=== PATIENT | male | born 1945 | race Caucasian/White ===

== ENCOUNTER 2016-12-24 10:12 | Observation (INO) | payer OTHER, MEDICARE ==
[2016-12-23 14:22] VITALS: BMI 30.1
[~2016-12-24] VITALS: Ht 165.1 cm; Wt 84.0 kg
[2016-12-24] VITALS (21 sets, daily range): BP systolic 103–151; BP diastolic 44–81; PULSE 75–99; RESP 12–24; Ht 165.1 cm; Wt 84.0 kg
--- NOTE | 2016-12-24 07:41 | HPN ---
Date/Time of Note Date/Time of Note DATE: 12/24/16 TIME: 07:41 Interval H&P Admission Note Pt. seen H&P reviewed: No system changes DES ROMERO MD Dec 24, 2016 07:41
[~2016-12-24 10:12] MED LIST: CAND32TA2 PO; EPHEDrine SULFATE 50 MG/5 ML SYG ONE; HYDR-3498 PO; LEVO500T72 PO; PROPOFOL 200 MG INJ ONE; TAMS-14 PO
[2016-12-24] MEDS ORDERED: PROPOFOL 20 ML ONE (11:12)
[2016-12-24] MEDS ORDERED: LIDOCAINE 2% (SDV) 5 ML INJ ONE (11:12)
[2016-12-24] MEDS ORDERED: CEFTRIAXONE 1 GM/50 ML (PMX) 50 ML IVPB ONE (12:00)
[2016-12-24] MEDS ORDERED: FENTAnyl 50 MCG/ML VIAL ONE ×2 (12:06→13:21)
[2016-12-24] MEDS ORDERED: MIDAZOLAM 1 MG/ML 2 ML INJ ONE (12:07)
[2016-12-24] MEDS ORDERED: ACETAMINOPHEN 1000MG/100ML IV 100 ML ONE (12:07)
[2016-12-24] MEDS ORDERED: DEXAMETHASONE 4 MG/ML 1 ML INJ ONE (12:08)
[2016-12-24] MEDS ORDERED: ONDANSETRON 4 MG INJ ONE (12:08)
[2016-12-24] MEDS ORDERED: FAMOTIDINE 20 MG INJ ONE (12:08)
[2016-12-24] MEDS ORDERED: AMLO5TAB4 PO (12:28)
[2016-12-24] MEDS ORDERED: METO50TA16 PO (12:28)
[2016-12-24] MEDS ORDERED: HYDROmorphONE (0.2 MG/ML) 10ML SYG IV ONE (14:25)
[2016-12-24] MEDS: METOPROLOL (XL) 50 MG TAB PO SCH (14:30)
[2016-12-24] MEDS ORDERED: ONDANSETRON 4 MG INJ IV PRN (14:30)
[2016-12-24] MEDS: AMLODIPINE 5 MG TAB PO SCH (14:30)
[2016-12-24] MEDS ORDERED: LABETALOL HCL 20MG INJ IV PRN (14:30)
[2016-12-24] MEDS ORDERED: OXYCODONE/ACETAMINOPHEN (5/325) TAB PO PRN ×2 (14:30)
[2016-12-24] MEDS ORDERED: HYDROmorphONE (0.2 MG/ML) 10ML SYG IV PRN ×3 (14:30)
--- NOTE | 2016-12-24 14:41 | OPR ---
DATE OF OPERATION: 12/24/2016 PREOPERATIVE DIAGNOSIS: Benign prostatic hypertrophy with obstruction. POSTOPERATIVE DIAGNOSIS: Benign prostatic hypertrophy with obstruction. PROCEDURE PERFORMED: Transurethral resection of the prostate. SURGEON: Rojas Lancaster MD TECHNIQUE: The patient was brought to the operating room. General anesthesia was induced. The pat ient was positioned in the lithotomy position. The patient was given 1 gram of ceftriaxone IV at t he start of the procedure. Timeout was done. The patient was identified by his name, date, a nd the procedure. The genital area was then prepped and draped in the usual sterile manner. The ur ethra was dilated with the Tamica dilators up to #30 Norwegian. Then, #26 Norwegian bipolar resectosco pe sheath was introduced under direct vision through the penile urethra all the way to the bladder. Once in the bladder, the bladder was inspected and there was no evidence of bladder tumor. The pro state was obstructing mostly from the left lateral lobe and also anterior lobe, and also there was s ome growth on the right lobe as well. The ureteral orifices were both identified. Then, the resect ion was done first on the left lateral lobe and the median lobe, and then the anterior lobe, and fin ally the right lobe. All the apical tissues were resected. All the bleeders were electrocoagulated . Good hemostasis was obtained. Then, at the end, all the prostatic chips were evacuated. The scope was then removed and then the #24 Norwegian York catheter, 3-way, was inserted and connected to a drainage bag. The balloon of the catheter inflated with 60 mL of sterile water. The catheter , I hand irrigated first, then the return was perfectly clear. Then, I put it under traction and ta ped it to his leg and continued the continuous bladder irrigation. The patient tolerated the proced ure well and was transferred to recovery room in stable and satisfactory condition. Estimated blood loss about 300 mL. Dictated By: ROJAS MARTÍNEZ/JULIO Conf#: [id number] DID#: [id number]
[2016-12-24] MEDS: DEXTROSE 5%-0.45% NACL 1,000 ML IV SCH (15:58)
[2016-12-24] MEDS ORDERED: HYDROCODONE/APAP (5/325) TAB PO PRN (20:00)
[2016-12-25 05:45] LABS: ADD SCAN DIFF NO
[2016-12-25 05:49] LABS: BASOPHILS % 0.1 % (0.0-2.0); HEMATOCRIT 41.6 % (42.0-52.0); HEMOGLOBIN 14.1 g/dl (14.0-18.0); LYMPHOCYTES % 7.4 % (15.0-51.0); MEAN CORPUSCULAR HEMOGLOBIN 30.4 pg (29.0-33.0); MEAN CORPUSCULAR HGB CONC 33.9 g/dl (32.0-37.0); MEAN CORPUSCULAR VOLUME 89.7 fl (82.0-101.0); MEAN PLATELET VOLUME 10.3 fl (7.4-10.4); MONOCYTE # 1.1 10^3/ul (0.3-0.9); MONOCYTES % 7.8 % (0.0-11.0); NEUTROPHIL # 11.6 10^3/ul (1.6-7.5); NEUTROPHILS % 84.2 % (39.0-77.0); PLATELET COUNT 237 10^3/UL (140-415); RED BLOOD COUNT 4.64 10^6/ul (4.70-6.10); RED CELL DISTRIBUTION WIDTH 12.6 % (11.5-14.5); WHITE BLOOD COUNT 13.8 10^3/ul (4.8-10.8)
[2016-12-25 07:00] VITALS: BP 153/83; RESP 20
[2016-12-25] MEDS: METOPROLOL (XL) 50 MG TAB PO SCH (08:55)
[2016-12-25] MEDS: AMLODIPINE 5 MG TAB PO SCH (08:55)
[2016-12-25] MEDS: DEXTROSE 5%-0.45% NACL 1,000 ML IV SCH (10:13)
--- NOTE | 2016-12-25 11:24 | PDOCDIS ---
Discharge Instructions DIAGNOSIS Discharge Diagnosis BPH with LUTS pending pathology report CONDITION Patient Condition: Good HOME CARE INSTRUCTIONS: Diet Instructions: Regular ACTIVITY: Activity Restrictions: Slowly Increase Activity Rest between Activity Avoid heavy lifting No Sexual Activity Do not Drive Avoid Heavy Housework Bathing Restrictions: Shower FOLLOW UP/APPOINTMENTS Follow-up Plan Follow up with Dr Lancaster on Tuesday. Call [phone] for appointment DES LANCASTER MD Dec 25, 2016 11:24
--- NOTE | 2016-12-25 12:51 | DS ---
DATE OF ADMISSION: 12/24/2016 DATE OF DISCHARGE: 12/25/2016 ADMITTING DIAGNOSIS: Benign prostatic hypertrophy with lower urinary tract symptoms. DISCHARGE DIAGNOSIS: Benign prostatic hypertrophy with lower urinary tract symptoms make. Pending pathology report. The patient underwent transurethral resection of the prostate on the day of admis girish. HOSPITAL COURSE: The patient postop had continuous bladder irrigation and the urine was water clear . The irrigation was stopped this morning, the urine remains clear. The patient is comfortable. Soto mcmillan has no pain, no discomfort and no bleeding. His vital signs are stable. Therefore, he is being d ischarged today to home with a York catheter and a leg bag. He is to continue his home medications , the metoprolol and the amlodipine, as he was taking them at home before. He will call my office an d come in, in about 3 to 4 days to remove the York catheter. He is instructed not to do any strenu ous activity. Should he have any problem, he will call me. The medications that I am also sending him on include: 1. Dana 5/325, #30, 1 tablet every 6 hours for pain p.r.n. 2. Colace 100 mg 1 tablet every 12 hours. 3. Bactrim-DS 1 tablet every 12 hours for 7 days. Dictated By: DES MARTÍNEZ/JULIO Conf#: [id number] DID#: [id number]
== END 2016-12-25 12:19 | disposition home or self-care (01) ==
LOC: SDS 10:12 → MS1 14:15
PROVIDERS: ADMIT Urology; ATTEND Urology
DX: N40.1 Benign prostatic hyperplasia with lower urinary tract symptoms (principal); N13.8 Other obstructive and reflux uropathy; I10 Essential (primary) hypertension; E66.9 Obesity, unspecified; Z68.30 Body mass index [BMI] 30.0-30.9, adult
CPT/HCPCS: 52601; 85025; 86850; 86900; 86901; 87086; G0378; J0131; J0696; J1100; J1170; J2250; J2405; J3010; J7042